=== PATIENT | male | born 1935 | race Two or more races ===

== ENCOUNTER 2023-03-13 01:40 | Inpatient (IN) | payer MEDICARE, OTHER ==
[~2023-03-13] VITALS: Ht 180.3 cm; Wt 62.6 kg
[2023-03-13] MEDS ORDERED: LEVOFLOXACIN 750 MG /D5W 150ML 150 ML IV ONE ×2 (02:00→02:10)
[2023-03-13] MEDS ORDERED: IV NS 0.9% 1,000 ML BAG IV ONE (02:00)
[2023-03-13 02:26] LABS: EOSINOPHILS % (AUTO) 0.1 % (0.0-6.0); HEMATOCRIT 34 % (39-51); HEMOGLOBIN 11.1 g/dL (13.5-17.5); LYMPHOCYTES # (AUTO) 0.3 K/uL (0.8-4.8); MEAN CORPUSCULAR HEMOGLOBIN 27 PG (26.0-33.0); MEAN CORPUSCULAR HGB CONC 32 g/dl (31.0-36.0); MEAN CORPUSCULAR VOLUME 84 fL (80-96); MONOCYTES # (AUTO) 0.2 K/uL (0.1-1.30); MONOCYTES % (AUTO) 1.1 % (2.0-12.0); NEUTROPHILS % (AUTO) 96.8 % (43.0-81.0); PLATELET COUNT (AUTO) 283 K/uL (150-450); RED CELL DISTRIBUTION WIDTH 17.1 % (11.5-15.0); WHITE BLOOD COUNT (AUTO) 15.5 K/uL (4.3-11.0)
[2023-03-13 02:27] LABS: CALCIUM, SERUM 8.5 mg/dL (8.5-10.1); CARBON DIOXIDE 27 mmol/L (21-32); CHLORIDE 94 mmol/L (98-107); CREATININE 1.9 mg/dL (0.6-1.3); GLUCOSE 304 mg/dL (74-106); POTASSIUM 4.7 mmol/L (3.5-5.1); SODIUM SERUM 134 mmol/L (136-145)
[2023-03-13 02:28] LABS: INR 1.12 (0.91-1.10); PARTIAL THROMBOPLASTIN TIME 24.1 SEC (24.3-34.3); PROTHROMBIN TIME 11.8 SECS (9.2-11.1)
[2023-03-13 02:33] LABS: ALANINE AMINOTRANSFERASE 20 U/L (12-78); ALBUMIN 2.1 g/dL (3.4-5.0); ALKALINE PHOSPHATASE 91 U/L (46-116); ASPARTATE AMINOTRANSFERASE 54 U/L (15-37); BILIRUBIN,DIRECT 0.3 mg/dL (0.0-0.2); TOTAL PROTEIN, SERUM 8.4 g/dL (6.4-8.2); UREA NITROGEN, BLOOD 122 mg/dL (7-18)
[2023-03-13 02:37] LABS: LACTIC ACID 3.2 mmol/L (0.4-2.0)
[2023-03-13 02:47] LABS: APPEARANCE,URINE CLEAR (CLEAR); BILIRUBIN,URINE NEGATIVE (NEGATIVE); BLOOD, URINE NEGATIVE Ery/uL (NEGATIVE); COLOR,URINE DARK YELLOW (YELLOW); KETONES,URINE NEGATIVE (NEGATIVE); LEUKOCYTE ESTERASE ,URINE NEGATIVE (NEGATIVE); NITRITE, URINE NEGATIVE (NEGATIVE); PROTEIN,URINE NEGATIVE (NEGATIVE); UGLUCOSE TRACE mg/dL (NEGATIVE); UROBILINOGEN,URINE 0.2 EU/dL (0.2)
[2023-03-13] MEDS ORDERED: FUROSEMIDE 20 MG/2 ML VIAL ONE (04:56)
[2023-03-13] MEDS ORDERED: MORPHINE SULFATE INJ 2 MG/ML DISP.SYRIN IV PRN (05:00)
[2023-03-13] MEDS ORDERED: DEXTROSE 50%-WATER 50 ML DISP.SYRIN IV PRN (05:00)
[2023-03-13] MEDS ORDERED: hydrALAZINE HCL IV 20 MG VIAL IV PRN (05:00)
[2023-03-13] MEDS ORDERED: FUROSEMIDE 20 MG/2 ML VIAL IV ONE (05:00)
[2023-03-13] MEDS ORDERED: ONDANSETRON HCL/PF 4 MG/2 ML VIAL IVP PRN (05:00)
[2023-03-13] MEDS ORDERED: ACETAMINOPHEN 325 MG TABLET PO PRN (05:00)
[2023-03-13] MEDS ORDERED: *INSULIN REGULAR(HUMULIN R)HUM 100 UNIT/ML VIAL SQ PRN (05:00)
[2023-03-13] MEDS ORDERED: ALBUTEROL FS 2.5 MG/0.5 ML VIAL.NEB NEB PRN (05:00)
[2023-03-13] MEDS ORDERED: IPRATROPIUM/ALBUTEROL INHALER IH SCH (06:00)
[2023-03-13] MEDS: BLOOD SUGAR DIAGNOSTIC 1 EACH STRIP VI SCH ×4 (08:54→22:52)
[2023-03-13] MEDS ORDERED: ACET1OOV6 IH (09:00)
[2023-03-13] MEDS ORDERED: ZINC220C6 GT (09:00)
[2023-03-13] MEDS ORDERED: MAGN400O6 GT (09:00)
[2023-03-13] MEDS ORDERED: CRAN3875 GT (09:00)
[2023-03-13] MEDS ORDERED: LOSA100T31 GT (09:00)
[2023-03-13] MEDS ORDERED: FURO-145 GT (09:00)
[2023-03-13] MEDS ORDERED: [UNRECOGNIZED DRUG - OTHER] TP (09:00)
[2023-03-13] MEDS ORDERED: INSU100V39 SQ (09:00)
[2023-03-13] MEDS ORDERED: AMLO5TAB4 GT (09:00)
[2023-03-13] MEDS ORDERED: METH4TAB GT (09:00)
[2023-03-13] MEDS ORDERED: FAMO20TA8 GT (09:00)
[2023-03-13] MEDS ORDERED: IPRA3AMP22 IH (09:00)
[2023-03-13] MEDS ORDERED: ACET-868 GT (09:00)
[2023-03-13] MEDS ORDERED: INSULIN GLARGINE SQ (09:00)
[2023-03-13] MEDS ORDERED: DIABETISOURCE GT (09:00)
[2023-03-13] MEDS ORDERED: CARV3.12 GT (09:00)
[2023-03-13] MEDS ORDERED: CANA100T GT (09:00)
[2023-03-13] MEDS ORDERED: LEVO500T90 GT (09:00)
[2023-03-13] MEDS ORDERED: TRAZ-182 GT (09:00)
[2023-03-13] MEDS ORDERED: ASPI-1169 GT (09:00)
[2023-03-13] MEDS ORDERED: LACT10SO29 GT (09:00)
[2023-03-13] MEDS ORDERED: ONDA4TAB5 GT (09:00)
[2023-03-13] MEDS ORDERED: ACET-2605 GT (09:00)
[2023-03-13] MEDS ORDERED: BISA10SU11 RC (09:00)
[2023-03-13] MEDS ORDERED: DOCU100T2 GT (09:00)
[2023-03-13] MEDS ORDERED: LIDO30AD10 TD (09:00)
[2023-03-13] MEDS ORDERED: HONE44PA TP (09:00)
[2023-03-13] MEDS ORDERED: ATOR80TA GT (09:00)
[2023-03-13] MEDS ORDERED: MULT-213 GT (09:00)
[2023-03-13] MEDS ORDERED: FUROSEMIDE 40 MG/4 ML VIAL ONE ×2 (10:11→19:24)
[2023-03-13] MEDS: HEPARIN SODIUM, PORCINE 5000 UNITS/1 ML VIAL SQ SCH ×2 (10:27→21:53)
[2023-03-13] MEDS: FUROSEMIDE 40 MG/4 ML VIAL IV SCH ×2 (10:27→17:00)
[2023-03-13] MEDS: CEFEPIME 1 GM in IV D5W 50 ML IV SCH (13:15)
[2023-03-13] MEDS ORDERED: ALBUTEROL FS 2.5 MG/0.5 ML VIAL.NEB ONE ×2 (13:25→20:25)
[2023-03-13] MEDS ORDERED: IPRATROPIUM NEB FS 0.5 MG/2.5 ML AMPUL.NEB ONE ×2 (13:25→20:25)
[2023-03-13] MEDS: ALBUTEROL FS 2.5 MG/0.5 ML VIAL.NEB NEB SCH ×2 (13:35→20:22)
[2023-03-13] MEDS: IPRATROPIUM NEB FS 0.5 MG/2.5 ML AMPUL.NEB NEB SCH ×2 (13:35→20:21)
[2023-03-13 13:36] VITALS: O2SAT 93
[2023-03-13 13:54] VITALS: O2SAT 92
[2023-03-13 20:22] VITALS: O2SAT 93
[2023-03-13 20:44] VITALS: O2SAT 97
[2023-03-13] MEDS ORDERED: HEPARIN SODIUM, PORCINE 5000 UNITS/1 ML VIAL ONE (21:42)
[2023-03-14] VITALS (10 sets, daily range): BP systolic 103–115; BP diastolic 42–59; TEMP 98.1–98.6; O2SAT 91–98
[2023-03-14] MEDS: IPRATROPIUM NEB FS 0.5 MG/2.5 ML AMPUL.NEB NEB SCH ×4 (02:29→19:30)
[2023-03-14] MEDS: ALBUTEROL FS 2.5 MG/0.5 ML VIAL.NEB NEB SCH ×3 (02:29→13:56)
[2023-03-14] MEDS ORDERED: CEFEPIME 1 GM VIAL ONE (05:01)
[2023-03-14] MEDS: CEFEPIME 1 GM in IV D5W 50 ML IV SCH ×2 (05:09→12:11)
[2023-03-14] MEDS: BLOOD SUGAR DIAGNOSTIC 1 EACH STRIP VI SCH ×3 (06:28→17:19)
[2023-03-14] MEDS: INSULIN REGULAR, HUMAN 100 UNIT/ML 3 ML VIAL SQ PRN ×2 (06:35→11:50)
[2023-03-14] MEDS ORDERED: GLUCERNA 1.2 1,000 ML BOTTLE NG PRN (08:00)
[2023-03-14] MEDS: FUROSEMIDE 40 MG/4 ML VIAL IV SCH ×2 (09:00→17:00)
[2023-03-14] MEDS: HEPARIN SODIUM, PORCINE 5000 UNITS/1 ML VIAL SQ SCH (09:13)
[2023-03-14] MEDS ORDERED: DAKINS QUARTER STRENGTH (0.125%) 480 ML BOTTLE TOP SCH (10:00)
[2023-03-14 11:50] LABS: BASOPHILS % (AUTO) 0.2 % (0.0-2.0); HEMATOCRIT 33 % (39-51); HEMOGLOBIN 10.4 g/dL (13.5-17.5); LYMPHOCYTES # (AUTO) 0.5 K/uL (0.8-4.8); LYMPHOCYTES % (AUTO) 1.9 % (20.0-44.0); MEAN CORPUSCULAR HEMOGLOBIN 27 PG (26.0-33.0); MEAN CORPUSCULAR HGB CONC 32 g/dl (31.0-36.0); MEAN CORPUSCULAR VOLUME 84 fL (80-96); MONOCYTES # (AUTO) 0.5 K/uL (0.1-1.30); MONOCYTES % (AUTO) 1.9 % (2.0-12.0); NEUTROPHILS # (AUTO) 23.9 K/uL (1.8-8.9); PLATELET COUNT (AUTO) 275 K/uL (150-450); RED BLOOD CELL COUNT(AUTO) 3.89 MIL/uL (4.5-6.0); RED CELL DISTRIBUTION WIDTH 17.4 % (11.5-15.0); WHITE BLOOD COUNT (AUTO) 24.9 K/uL (4.3-11.0)
[2023-03-14 13:27] LABS: ALANINE AMINOTRANSFERASE 22 U/L (12-78); ALKALINE PHOSPHATASE 114 U/L (46-116); ASPARTATE AMINOTRANSFERASE 65 U/L (15-37); BILIRUBIN,TOTAL 0.9 mg/dL (0.2-1.0); CALCIUM, SERUM 8.5 mg/dL (8.5-10.1); CARBON DIOXIDE 26 mmol/L (21-32); CHLORIDE 101 mmol/L (98-107); CREATININE 2.3 mg/dL (0.6-1.3); GLUCOSE 333 mg/dL (74-106); MAGNESIUM 3.5 mg/dL (1.8-2.4); POTASSIUM 4.1 mmol/L (3.5-5.1); SODIUM SERUM 140 mmol/L (136-145); TOTAL PROTEIN, SERUM 7.5 g/dL (6.4-8.2)
[2023-03-14 13:32] LABS: ALBUMIN 1.8 g/dL (3.4-5.0)
[2023-03-14 13:34] LABS: UREA NITROGEN, BLOOD 145 mg/dL (7-18)
[2023-03-14 13:38] LABS: CREATINE KINASE, TOTAL 1466 U/L (39-308)
[2023-03-14] MEDS ORDERED: CLOTRIMAZOLE 1% 15 GM TUBE TP SCH (17:00)
[2023-03-14] MEDS ORDERED: ALBUTEROL FS 2.5 MG/0.5 ML VIAL.NEB NEB SCH (19:30)
[2023-03-15 08:10] LABS: PTH, INTACT 224 pg/mL (15-65)
[2023-03-15 10:12] LABS: *SPE A/G RATIO 0.4 (0.7-1.7); *SPE ALBUMIN 1.9 g/dL (2.9-4.4); *SPE ALPHA-1-GLOBULIN 0.6 g/dL (0.0-0.4); *SPE ALPHA-2-GLOBULIN 1.4 g/dL (0.4-1.0); *SPE GLOBULIN, TOTAL 4.6 g/dL (2.2-3.9); *SPE M-SPIKE Not Observed g/dL (Not Observed); *SPE PROTEIN TOTAL 6.5 g/dL (6.0-8.5); *SPEGAMMA GLOBULIN 1.6 g/dL (0.4-1.8)
== END 2023-03-14 22:08 | disposition hospice, home (50) | DRG 189 ==
LOC: ER 01:42 → TRANSITION 08:30 → TELE 03-14 00:35
PROVIDERS: ADMIT Internal Medicine
DX: J96.01 Acute respiratory failure with hypoxia (principal); I50.23 Acute on chronic systolic (congestive) heart failure; I13.0 Hypertensive heart and chronic kidney disease with heart failure and stage 1 through stage 4 chronic kidney disease, or unspecified chronic kidney disease; N17.9 Acute kidney failure, unspecified; E87.1 Hypo-osmolality and hyponatremia; G93.40 Encephalopathy, unspecified; E87.20 Acidosis, unspecified; I69.354 Hemiplegia and hemiparesis following cerebral infarction affecting left non-dominant side; I25.10 Atherosclerotic heart disease of native coronary artery without angina pectoris; J44.9 Chronic obstructive pulmonary disease, unspecified; N18.9 Chronic kidney disease, unspecified; Z95.810 Presence of automatic (implantable) cardiac defibrillator; K21.9 Gastro-esophageal reflux disease without esophagitis; E11.22 Type 2 diabetes mellitus with diabetic chronic kidney disease; R13.10 Dysphagia, unspecified; I48.91 Unspecified atrial fibrillation; L89.150 Pressure ulcer of sacral region, unstageable; B02.9 Zoster without complications; I25.5 Ischemic cardiomyopathy; F32.9 Major depressive disorder, single episode, unspecified; I69.391 Dysphagia following cerebral infarction; I70.0 Atherosclerosis of aorta; Z79.4 Long term (current) use of insulin; Z93.1 Gastrostomy status; Z95.1 Presence of aortocoronary bypass graft; Z99.81 Dependence on supplemental oxygen; Z88.0 Allergy status to penicillin; Z79.82 Long term (current) use of aspirin; Z79.899 Other long term (current) drug therapy; D64.9 Anemia, unspecified
CPT/HCPCS: 36415; 71045-TC; 76770-TC; 80048-TC; 80053-TC; 80076-TC; 82550-TC; 82553; 82962-TC; 83605-TC; 83735-TC; 83880; 83970; 84100-TC; 84155; 84165; 84484-TC; 85025-TC; 85730-TC; 87040-TC; 87086-TC; 93307-TC; 94799-TC; A4223; A6253; G0378; J0692; J1644; J1815; J1940; J1956; J7030; J7050; J7060